=== PATIENT | male | born 1960 | race Hispanic/Latino ===

== ENCOUNTER 2025-06-30 12:11 | Emergency (ER) | payer MEDICARE ==
[~2025-06-30] VITALS: Ht 172.7 cm; Wt 72.6 kg
--- NOTE | 2025-06-30 12:25 | ERN ---
ED Note History of Present Illness Stated Complaint: LOWER EXTREMITY EDEMA Chief Complaint: LOWER EXTREMITY EDEMA Time Seen by MD: 12:22 Dictation: PATIENT IS A 64-YEAR-OLD MALE COMING IN FROM [place] VIA EMS WITH COMPLAINTS OF UNABLE TO URINATE SINCE YESTERDAY AFTERNOON AND FEELING VERY DISTENDED. IN ADDITION HE HAS GOT EDEMA TO HIS BILATERAL LOWER EXTREMITIES HE HAS HAD FOR A WEEK. HE STATES HE WENT TO [facility] IN [place] LAST WEEK AND WAS SEEN FOR THE SAME COMPLAINT THEY GAVE HIM LASIX FOR A DAY AND THEN SENT HIM HOME. HE SAW HIS PRIMARY CARE DOCTOR TODAY ADVISED HIM TO COME TO THE EMERGENCY ROOM AND CALLED EMS. Allergies: Coded Allergies: No Known Drug Allergies (Unverified Allergy, Unknown, 06/30/25) Past Medical History Past Medical History: No Pertinent History Surgical History: None RN Note Reviewed/Agreed w/PFSH: Yes Review of System Dictation CONSTITUTIONAL: NEGATIVE EXCEPT FOR HPI HEAD/FACE: NEGATIVE EXCEPT FOR HPI EENT: NEGATIVE EXCEPT FOR HPI RESPIRATORY: NEGATIVE EXCEPT FOR HPI SHORTNESS A BREATH GASTROINTESTINAL/ABDOMINAL: NEGATIVE EXCEPT FOR HPI DISTENTION WITH A ASCITES GENITOURINARY: NEGATIVE EXCEPT FOR HPI UNABLE TO VOID SINCE LAST NIGHT DISTENDED MUSCULOSKELETAL: NEGATIVE EXCEPT FOR HPI INTEGUMENTARY: NEGATIVE EXCEPT FOR HPI NEUROLOGICAL/PSYCH: NEGATIVE EXCEPT FOR HPI HEMATOLOGIC/LYMPHATIC: NEGATIVE EXCEPT FOR HPI ALL SYSTEMS NEGATIVE, EXCEPT NOTED ABOVE. 13 POINT REVIEW OF SYSTEMS ASSESSED AND ALL NEGATIVE EXCEPT FOR ABOVE. Initial Vital Sign VS Vital Signs Date Time Temp Pulse Resp B/P (MAP) Pulse Ox O2 Delivery O2 Flow Rate FiO2 06/30/25 12:13 97.9 89 18 130/84 97 Room Air 0 06/30/25 12:42 21 Physical Exam Dictation VITAL SIGNS REVIEWED GENERAL APPEARANCE: ALERT, ORIENTED X 3, NO ACUTE DISTRESS, WELL DEVELOPED, NOURISHED. HEAD AND FACE: NON-TRAUMATIC. EYES: PERRL, PINK CONJUNCTIVAS, EYELID NO TRAUMA, ANTERIOR CHAMBER WITH ARCUS SENILIS. EARS: PINNAS INTACT AND NO SIGNS OF TRAUMA OR ERYTHEMA EAR CANALS CLEAR AND NO DISCHARGE TM NO ERYTHEMA NOSE: NO DISCHARGE, NO BLEEDING. OROPHARYNX: MOUTH NORMAL, TONGUE PINK, PHARYNX CLEAR,NO ERYTHEMA, TONSILS NO EXUDATES, NO ABSCESSES NOTED, MUCOUS MEMBRANE MOIST NECK: SUPPLE, NON-TENDER, NO THYROMEGALY, NO MASSES, NO JVD, NO BRUITS BREAST:DEFERRED CHEST:NO TENDERNESS, NO CREPITUS, NO PARADOXICAL MOVEMENT, NO RETRACTIONS LUNGS:CLEAR, WELL-VENTILATED, SYMMETRIC, NO RALES, NO WHEEZING, NO RHONCHI, NO STRIDOR, GOOD BREATH SOUNDS BILATERALLY HEART: REGULAR RATE, REGULAR RHYTHM, NO MURMUR, NO GALLOPS VASCULAR: TWO TO 3+ PERIPHERAL EDEMA BILATERAL LOWER EXTREMITIES TO ANKLE, ABDOMEN: SOFT, POSITIVE BOWEL SOUNDS, MODERATE DISTENTION, NO GUARDING, NONTENDER, NO REBOUND, NO MASSES NO HEPATOMEGALY, NO SPLENOMEGALY, NO MONTESINOS'S SIGN, NO HERNIAS. NEGATIVE WAVE SIGN RECTAL: DEFERRED GENITAL: BLADDER DISTENDED 2-3 FINGERBREADTHS ABOVE SYMPHYSIS PUBIS NEUROLOGICAL: NORMAL SPEECH, MOTOR FUNCTION INTACT, SENSORY FUNCTION INTACT MUSCULOSKELETAL: NECK NONTENDER, FULL RANGE OF MOTION, BACK NONTENDER, FULL RANGE OF MOTION, EXTREMITIES: NONTENDER, FULL RANGE OF MOTION SKIN: COLOR PINK, DRY, NO TURGOR, NO RASH, NO LACERATIONS, NO ABRASIONS, NO CONTUSIONS. LYMPHATIC: DEFERRED Results (Laboratory/Radiology) Laboratory/Radiology Laboratory Tests Test 06/30/25 12:31 06/30/25 14:54 White Blood Count 6.6 K/uL (4.8-10.8) Red Blood Count 4.64 MIL/uL (4.50-6.20) Hemoglobin 13.2 g/dL (14.0-18.0) L Hematocrit 40.9 % (42-54) L Mean Corpuscular Volume 88.1 fL (79-99) Mean Corpuscular Hemoglobin 28.4 pg (27.0-33.0) Mean Corpuscular Hemoglobin Concent 32.3 g/dL (32.0-36.0) Red Cell Distribution Width 14.4 % (11.0-15.5) Platelet Count 320 K/uL (130-400) Mean Platelet Volume 8.6 fL (7.5-10.5) Immature Granulocyte % (Auto) 0.6 % (0-1) Neutrophils (%) (Auto) 61.5 % (40.0-77.0) Lymphocytes (%) (Auto) 20.0 % (21.0-51.0) L Monocytes (%) (Auto) 12.3 % (3.0-13.0) Eosinophils (%) (Auto) 5.0 % (0.0-8.0) Basophils (%) (Auto) 0.6 % (0.0-5.0) Neutrophils # (Auto) 4.1 K/uL (1.8-7.7) Lymphocytes # (Auto) 1.3 K/uL (1.0-4.8) Monocytes # (Auto) 0.8 K/uL (0.1-1.0) Eosinophils # (Auto) 0.33 K/uL (0.00-0.70) Basophils # (Auto) 0.04 K/uL (0.00-0.20) Absolute Immature Granulocyte (auto 0.04 K/uL (0-1) Nucleated Red Blood Cells 0.0 % (0.0-0.19) Sodium Level 132 mmol/L (136-145) L Potassium Level 3.9 mmol/L (3.5-5.1) Chloride Level 97 mmol/L (101-111) L Carbon Dioxide Level 27 mmol/L (21-32) Blood Urea Nitrogen 23 mg/dL (7-18) H Creatinine 1.0 mg/dL (0.5-1.3) Glomerular Filtration Rate Calc 84 mL/min (>90) Random Glucose 90 mg/dL (70-105) Total Calcium 8.9 mg/dL (8.5-10.1) Troponin I High Sensitivity 6 ng/L (4-75) B-Type Natriuretic Peptide 99 pg/mL (0-100) Urine Color YELLOW (YELLOW) Urine Appearance CLEAR (CLEAR) Urine pH 6.0 (5.0-8.0) Urine Specific [place] 1.020 (1.001-1.031) Urine Protein TRACE mg/dL (NEGATIVE) H Urine Glucose (UA) NEGATIVE mg/dL (NEGATIVE) Urine Ketones NEGATIVE mg/dL (NEGATIVE) Urine Occult Blood MODERATE (NEGATIVE) H Urine Nitrate NEGATIVE (NEGATIVE) Urine Bilirubin NEGATIVE mg/dL (NEGATIVE) Urine Urobilinogen 0.2 mg/dL (0.2-1.0) Urine Leukocyte Esterase NEGATIVE Hua/uL Urine RBC 6-10 /HPF (0-1) H Urine WBC 0-1 /HPF (0-1) Urine Squamous Epithelial Cells None Seen /HPF (0-2) Urine Bacteria Rare /HPF (None Seen) STUDY: X-RAY OF THE CHEST, 1 VIEW HISTORY: Shortness of breath. TECHNIQUE: A single frontal view of the chest is submitted for interpretation. COMPARISON: None provided. FINDINGS: Pulmonary plata: Moderate diffuse airspace opacities are present in both lungs. Background prominence of bronchovascular markings is compatible with underlying chronic bronchitic change. No focal cavitary lesion is identified. Cardiac silhouette: Mild cardiomegaly. Mediastinum and maycol: Pulmonary vascular markings are mildly prominent, in keeping with mild vascular congestion. Mediastinal contours and maycol are otherwise within normal limits. Osseous structures: Visualized ribs, clavicles, and thoracic spine show no acute osseous abnormality. Miscellaneous: No large pleural effusion or pneumothorax is identified. Diaphragms and costophrenic angles are grossly preserved on this single view. No subdiaphragmatic free air is seen. IMPRESSION: * Moderate diffuse bilateral airspace opacities with mild pulmonary vascular congestion and mild cardiomegaly, most suggestive of pulmonary edema in the appropriate clinical setting. Atypical or multifocal infection could have a similar appearance. Correlate with clinical findings, oxygenation status, and laboratory markers (including BNP and inflammatory markers); further evaluation with echocardiography and/or follow-up chest imaging may be warranted based on the clinical course. * Background changes compatible with chronic bronchitis/chronic airway disease. Correlate with smoking history or other chronic airway irritants; optimization of bronchodilator and pulmonary care may be considered as clinically indicated. * No large pleural effusion or pneumothorax identified on this single-view study. If symptoms are severe or progressive, additional imaging (including lateral chest radiograph or CT) can be considered for more detailed assessment. /[facility] Reviewed?: Yes EKG: (+) NSR EKG Comment: 67/ EKG NORMAL SINUS RHYTHM/HEART RATE 67/AXIS NORMAL/NO ED Course ED Course Orders Procedure Category Date Status Time B-Type Natriuretic LAB 06/30/25 Complete Peptide 12:22 Bladder Scan CPOE 06/30/25 Transmitted 12:22 Cbc With Differential LAB 06/30/25 Complete 12:22 Troponin I High LAB 06/30/25 Complete Sensitivity 12:22 Urinalysis Profile LAB 06/30/25 Complete 12:22 12 Lead Ekg Tracing- EKG 06/30/25 Complete Technical 12:22 Chest 1vw RAD 06/30/25 Resulted 12:22 Basic Metabolic Panel LAB 06/30/25 Complete 12:22 *Nursing CPOE 06/30/25 Transmitted Communication: 12:22 Hydrocodone/Apap PHA 06/30/25 Complete 5/325 ([place] 5/325mg) 14:30 Current Medications Medications (Trade) Dose Ordered Sig/[place] Route PRN Reason Start Time Stop Time Status Last Admin Dose Admin Acetaminophen/ Hydrocodone Bitart (NORco 5/325MG) 1 tab ONCE ONCE PO 06/30/25 14:30 06/30/25 14:31 DC 06/30/25 14:16 Vital Signs Date Time Temp Pulse Resp B/P (MAP) Pulse Ox O2 Delivery O2 Flow Rate FiO2 06/30/25 12:42 98.2 78 16 119/80 97 Room Air* 0 21 06/30/25 12:13 97.9 89 18 130/84 97 Room Air 0 1520/PATIENT'S LABS ARE ESSENTIALLY UNREMARKABLE SODIUM 132 MILD DEHYDRATION. THERE WAS NO BNP ELEVATION HE DOES HAVE ACUTE URINARY RETENTION CEVALLOS CATHETER HAS BEEN PLACED AND BLADDER WAS DECOMPRESSED. THERE WAS NO UTI HE WILL BE DISCHARGED HOME WITH BPH AND OBSTRUCTION REFERRED TO UROLOGY PUT ON FLOMAX AND CIPRO HEART Score Response (Comments) Value History: Low suspicion (0) 0 Age: 45-65yrs (+1) 1 Risk Factors: 1-2 risk factors (+1) 1 Initial Troponin: Normal limit (0) 0 Total 2 Medical Decision Making MDM MDM: DIFFERENTIAL DIAGNOSIS: CHF EXACERBATION/EDEMA/ELECTROLYTE IMBALANCE/DEHYDRATION/BPH WITH URINARY RETENTION/ARRHYTHMIA/ACS/AMI/ RATIONALE: TESTS CONSIDERED AND ORDERED SECONDARY TO SHARED DECISION MAKING INCLUDE: LABS/EKG/RADIOLOGY PREVIOUS OUTSIDE RECORDS REVIEWED: OLD ER VISITS. RISK OF COMPLICATION AND/OR MORBIDITY OR MORTALITY OF PATIENT MANAGEMENT: NONE MEDICATIONS-PER MEDICATION RECONCILIATION NEED FOR HOSPITALIZATION: PATIENT DOES NOT MEET CRITERIA FOR HOSPITALIZATION. NONE NEED FOR EMERGENCY MAJOR/MINOR SURGERY: NO THERE ARE NO SOCIAL CONCERNS WITH THIS PATIENT. PRESCRIPTION DRUG MANAGEMENT CIPRO/FLAGYL/LASIX REFERRED TO UROLOGY PRESCRIPTIONS WILL INCLUDE SYMPTOMATIC CARE PATIENT'S PRIOR EXTERNAL MEDICAL RECORDS FROM OTHER ER VISITS WERE REVIEWED BY ME INDICATED. PRIOR TESTING AND RESULTS FROM PREVIOUS VISITS WERE REVIEWED. PRIOR TESTS WERE TAKEN INTO ACCOUNT WITH MEDICAL DECISION MAKING AND RESOURCE UTILIZATION, INDEPENDENT HISTORIAN/HISTORIANS WERE USED TO OBTAIN COMPLETE MEDICAL HISTORY. I INDEPENDENTLY INTERPRETED THE TEST THAT WERE PERFORMED, RESULTS WERE REVIEWED BY ME AND CONSIDERED FINDINGS ON RADIOLOGY IF ORDERED. MEDICAL MANAGEMENT AND EXAMINATION INTERPRETATION DISCUSSIONS WERE HAD BY ME WITH OTHER QUALIFIED HEALTHCARE PROFESSIONALS INDICATED FOR THE PATIENT'S CARE. DX & DISP Disposition: Discharge Departure Impression: Primary Impression: Acute urinary retention Additional Impressions: BPH with urinary obstruction, Hyponatremia, Mild dehydration, Dependent edema Condition: Stable Scripts Furosemide (Lasix) 20 Mg Tablet 1 TAB PO DAILY for 5 Days, #5 TAB 0 Refills Prov: DORCAS CHAPARROP 06/30/25 Ciprofloxacin HCl (Cipro) 500 Mg Tablet 1 TAB PO BID for 10 Days, #20 TAB 0 Refills Prov: DORCAS CHAPARROP 06/30/25 Additional Instructions: FOLLOW-UP WITH PRIMARY CARE PROVIDER IN 1 TO 2 DAYS. TAKE MEDICATIONS DIRECTED HERE IN THE EMERGENCY ROOM. OKAY TO CONTINUE HOME MEDICATIONS UNLESS OTHERWISE DISCUSSED DURING YOUR VISIT IN THE EMERGENCY ROOM TODAY. RETURN TO YOUR NEAREST EMERGENCY ROOM IF SYMPTOMS WORSEN OR IF THERE IS NO IMPROVEMENT. CALL 911 IF YOU NEED IMMEDIATE ASSISTANCE. TAKE TYLENOL OR MOTRIN [id number] NEEDED AND IF NO CONTRAINDICATIONS ARE PRESENT. INCREASE ORAL HYDRATION. A WOUND CULTURE OR URINE CULTURE WAS ORDERED HERE IN THE EMERGENCY ROOM DEPARTMENT PLEASE FOLLOW-UP WITH PRIMARY CARE PROVIDER AND ADVISE THEM TO GET REPEAT PORTS FROM OUR FACILITY. IF YOU HAD ANY KENDRICK WRAP/SPLINTS THAT WERE APPLIED HERE, PLEASE DO NOT REMOVE THEM UNTIL YOU SEE YOUR PRIMARY CARE OR SPECIALTY. TAKE CIPRO DIRECTED UNTIL GONE. KEEP YOUR LEGS ELEVATED MUCH POSSIBLE. TAKE LASIX DAILY FOR THE NEXT FIVE DAYS FOR YOUR EDEMA. CALL UROLOGIST FOR AN APPOINTMENT IN THE NEXT 1-2 DAYS AND INCREASE YOUR WATER INTAKE. Referrals: NONE (PCP) SAMUEL CHESTER MD Time of Disposition: 15:25 I have reviewed the case, and I agree with, Diagnosis and Plan DORCAS CHAPARRO Jun 30, 2025 12:24
[2025-06-30 12:38] LABS: IMMATURE GRANULOCYTE ABSOLUTE 0.04 K/uL (0-1); NUCLEATED RED BLOOD CELLS 0.0 % (0.0-0.19); PLATELET COUNT (AUTO) 320 K/uL (130-400); RED BLOOD CELL COUNT(AUTO) 4.64 MIL/uL (4.50-6.20); RED CELL DISTRIBUTION WIDTH 14.4 % (11.0-15.5); WHITE BLOOD COUNT (AUTO) 6.6 K/uL (4.8-10.8)
[2025-06-30 12:42] VITALS: BP 119/80; PULSE 78; RESP 16; TEMP 98.3; O2SAT 97
[2025-06-30 12:46] LABS: CREATININE 1.0 mg/dL (0.5-1.3); GLOMERULAR FILTR. RATE CALC 84.0 mL/min (>90); GLUCOSE,RANDOM 90.0 mg/dL (70-105); SODIUM SERUM 132.0 mmol/L (136-145); UREA NITROGEN, BLOOD 23.0 mg/dL (7-18)
--- NOTE | 2025-06-30 12:56 | NUR ---
PATIENT [id number] CC OF URINE AFTER BLADDER SCAN DORCAS CHAPARRO [employer]ATTLE ALLEY WORKER AWARE PATIENT RESTING IN BED, CALL LIGHT IN REACH
--- NOTE | 2025-06-30 13:15 | HMCIMG ---
STUDY: X-RAY OF THE CHEST, 1 VIEW HISTORY: Shortness of breath. TECHNIQUE: A single frontal view of the chest is submitted for interpretation. COMPARISON: None provided. FINDINGS: Pulmonary plata: Moderate diffuse airspace opacities are present in both lungs. Background prominence of bronchovascular markings is compatible with underlying chronic bronchitic change. No focal cavitary lesion is identified. Cardiac silhouette: Mild cardiomegaly. Mediastinum and maycol: Pulmonary vascular markings are mildly prominent, in keeping with mild vascular congestion. Mediastinal contours and maycol are otherwise within normal limits. Osseous structures: Visualized ribs, clavicles, and thoracic spine show no acute osseous abnormality. Miscellaneous: No large pleural effusion or pneumothorax is identified. Diaphragms and costophrenic angles are grossly preserved on this single view. No subdiaphragmatic free air is seen. IMPRESSION: * Moderate diffuse bilateral airspace opacities with mild pulmonary vascular congestion and mild cardiomegaly, most suggestive of pulmonary edema in the appropriate clinical setting. Atypical or multifocal infection could have a similar appearance. Correlate with clinical findings, oxygenation status, and laboratory markers (including BNP and inflammatory markers); further evaluation with echocardiography and/or follow-up chest imaging may be warranted based on the clinical course. * Background changes compatible with chronic bronchitis/chronic airway disease. Correlate with smoking history or other chronic airway irritants; optimization of bronchodilator and pulmonary care may be considered as clinically indicated. * No large pleural effusion or pneumothorax identified on this single-view study. If symptoms are severe or progressive, additional imaging (including lateral chest radiograph or CT) can be considered for more detailed assessment. /[facility]
--- NOTE | 2025-06-30 13:25 | NUR ---
16 K[place] CEVALLOS CATHETER PLACED, PATIENT TOLERATED WELL I GOT OUT 1000CC OF YELLOW URINE, PATIENT RESTING IN BED, CALL LIGHT IN REACH
[2025-06-30] MEDS: HYDROcodone/APAP 5/325 1 TAB TABLET PO ONE (14:16)
[2025-06-30 15:01] LABS: APPEARANCE,URINE CLEAR (CLEAR); GLUCOSE, URINE (UA) NEGATIVE (NEGATIVE); LEUKOCYTE ESTERASE ,URINE NEGATIVE Leu/uL (NEGATIVE); NITRATE,URINE NEGATIVE (NEGATIVE); OCCULT BLOOD,URINE MODERATE (NEGATIVE)
[2025-06-30 15:14] LABS: ADD UA MICROSCOPIC YES
[2025-06-30 15:16] LABS: SQUAMOUS EPITHELIAL CELL,UR None Seen /HPF (0-2)
--- NOTE | 2025-06-30 15:25 | EKG ---
[facility] Test Date: 2025-06-30 Test Time: 12:56:31 Pat Name: TAWNYA MATA Department: ED Room: Gender: Harness Rigger: [id number] Requested By: DORCAS CHAPARRO Order Number: [id number] Reading MD: Alfredo Rahman Measurements Intervals [place] Rate: 87 P: 49 WA: 210 QRS: 60 QRSD: 83 T: 26 QT: 341 QTc: 411 Interpretive Statements Sinus rhythm No previous ECG available for comparison Electronically Signed On 06-30-2025 21:19:57 [employer]ILRO[employer] DINING [employer] STEWARD[employer] by Alfredo Rahman Please click the below link to view image of tracing.
[2025-06-30] MEDS ORDERED: CIPR-278 PO (15:34)
[2025-06-30] MEDS ORDERED: FURO-152 PO (15:34)
--- NOTE | 2025-06-30 16:36 | NUR ---
dc patient was dc'd by nleli hay security nurse i dc'd patients iv with cath still intact and applied 2x2 gauz with coban, i explained to patient to follow up with pcp, provided info based on diagnosis, prescriptions, and answered any follow up questions, i instructed and provided patient info on indweeling catheter and how to take care of it, i spoke to warehouse material handler brandon tsang to set up uber transport for patient , patient was taken by wheelchair to front of ed, waitinf for uber, no complications
[2025-07-01] MEDS ORDERED: ACET-66 PO (11:28)
== END 2025-06-30 16:23 | disposition home or self-care (01) ==
LOC: EDBD 12:11 → EDH 12:11
DX: N40.1 Benign prostatic hyperplasia with lower urinary tract symptoms (principal); R33.8 Other retention of urine; N13.8 Other obstructive and reflux uropathy; E86.0 Dehydration; E87.1 Hypo-osmolality and hyponatremia; R60.9 Edema, unspecified; Z87.891 Personal history of nicotine dependence
CPT/HCPCS: 36415; 51702; 71045; 80048; 81001; 83880; 84484; 85025; 93005; 99285

== ENCOUNTER 2025-07-01 09:18 | Emergency (ER) | payer MEDICAID, MEDICARE ==
[~2025-07-01] VITALS: Ht 172.7 cm; Wt 72.6 kg
[~2025-07-01 09:18] MED LIST: CIPR-278 PO; FURO-152 PO
--- NOTE | 2025-07-01 09:59 | ERN ---
General Chief Complaint: Hip Pain/Injury Stated Complaint: HIP PAIN Time Seen by MD: 09:23 Source: EMS History of Present Illness Initial Comments My patient, 64-year-old male, was brought by EMS to the emergency with complaint of bilateral hip pain. Patient states that he had 2 falls since yesterday while walking. He did not lose any consciousness. He denies dizziness or li ghtheadedness before the fall. After the fall, he has pain in bilateral hips. He was seen in the emergency yesterday with difficulty urinating and a [place] catheter was placed. Timing/Duration: 24 hours Severity: mild Allergies: Coded Allergies: No Known Drug Allergies (Unverified Allergy, Unknown, 06/30/25) Home Meds Active Scripts Acetaminophen (Tylenol) 500 Mg Tab, 500 MG PO TID for 7 Days, #30 TAB Prov:DIONICIO CASTANON MD 07/01/25 Furosemide (Lasix) 20 Mg Tablet, 1 TAB PO DAILY for 5 Days, #5 TAB 0 Refills Prov:DORCAS CHAPARRO 06/30/25 Ciprofloxacin HCl (Cipro) 500 Mg Tablet, 1 TAB PO BID for 10 Days, #20 TAB 0 Refills Prov:DORCAS CHAPARRO 06/30/25 Past Medical History Past Medical History: No Pertinent History Past Surgical History: None Constitutional: (+) weakness Respiratory: (-) cough, (-) orthopnea, (-) short of breath, (-) stridor, (-) wheezing, (-) other documentation Cardiovascular: (+) edema, (+) dyspnea on exertion Gastrointestinal/Abdominal: (-) nausea, (-) vomiting, (-) diarrhea, (-) abdominal pain, (-) abdominal distention, (-) constipation, (-) rectal bleeding, (-) dark stool/melena, (-) other documentation Genitourinary: (+) other documentation ([place] catheter placed); (-) penile discharge, (-) dysuria, (-) frequency, (-) hematuria, (-) pain Musculoskeletal: (+) joint pain; (-) Neck pain, (-) back pain, (-) Flank Pain, (-) joint swelling, (-) muscle pain, (-) muscle stiffness, (-) gout, (-) other documentation Skin: (+) dryness; (-) laceration, (-) contusion, (-) abrasion, (-) abscess, (-) rash, (-) change in color, (-) change in hair, (-) change in nails, (-) diaphoresis, (-) other documentation Neuro: (-) altered mental status, (-) headache, (-) syncope, (-) paralysis, (-) numbness, (-) seizure, (-) pre-existing deficit, (-) tremors, (-) weakness, (-) dizziness, (-) slurred speech, (-) vertigo, (-) other documentation Physical Exam General Appearance: (+) mild distress Orientation: (+) alert, (+) oriented x 3 Head/Face Trauma: No Eye: bilateral eye normal inspection Ear, Nose, Throat: (+) hearing grossly normal, (+) moist mucous membraine, (+) normal pharynx Neck: (+) normal inspection, (+) supple, (+) full range of motion Respiratory: (+) chest non-tender Heart: (+) regular Vascular: (+) edema Gastrointestinal: (+) soft, (+) non-tender Back: (+) normal inspection, (+) no CVA tenderness Extremities: (+) normal range of motion, (+) non-tender, (+) pedal edema, (+) swelling Neurologic/Psychiatric: (+) normal speech Results Laboratory and Microbiology Lab and Micro Result Laboratory Tests Test 07/01/25 09:54 07/01/25 09:55 White Blood Count 7.3 K/uL (4.8-10.8) Red Blood Count 4.40 MIL/uL (4.50-6.20) L Hemoglobin 12.8 g/dL (14.0-18.0) L Hematocrit 39.2 % (42-54) L Mean Corpuscular Volume 89.1 fL (79-99) Mean Corpuscular Hemoglobin 29.1 pg (27.0-33.0) Mean Corpuscular Hemoglobin Concent 32.7 g/dL (32.0-36.0) Red Cell Distribution Width 14.3 % (11.0-15.5) Platelet Count 287 K/uL (130-400) Mean Platelet Volume 8.8 fL (7.5-10.5) Nucleated Red Blood Cells 0.0 % (0.0-0.19) Sodium Level 135 mmol/L (136-145) L Potassium Level 3.7 mmol/L (3.5-5.1) Chloride Level 99 mmol/L (101-111) L Carbon Dioxide Level 29 mmol/L (21-32) Blood Urea Nitrogen 16 mg/dL (7-18) Creatinine 1.1 mg/dL (0.5-1.3) Glomerular Filtration Rate Calc 75 mL/min (>90) Random Glucose 143 mg/dL (70-105) #H Total Calcium 8.9 mg/dL (8.5-10.1) Urine Color LIGHT-YELLOW (YELLOW) Urine Appearance CLOUDY (CLEAR) H Urine pH 6.0 (5.0-8.0) Urine Specific [place] 1.019 (1.001-1.031) Urine Protein 30 mg/dL (NEGATIVE) H Urine Glucose (UA) NEGATIVE mg/dL (NEGATIVE) Urine Ketones NEGATIVE mg/dL (NEGATIVE) Urine Occult Blood LARGE (NEGATIVE) H Urine Nitrate NEGATIVE (NEGATIVE) Urine Bilirubin NEGATIVE mg/dL (NEGATIVE) Urine Urobilinogen 0.2 mg/dL (0.2-1.0) Urine Leukocyte Esterase 75 Hua/uL (NEGATIVE) H Urine RBC 26-50 /HPF (0-1) H Urine WBC 6-10 /HPF (0-1) H Urine Squamous Epithelial Cells None Seen /HPF (0-2) Urine Bacteria Rare /HPF (None Seen) EKG/XRAY/US/CT/MRI X-RAY Comment PATIENT: TAWNYA MATA MR#: [id number] : 1960 SEX: M AGE: 64 LOCATION: [facility] ORDER 8 STATUS: [facility] REPORT#: [id number] SERVICE 4 REASON: Fall with hip pain. ORDERING PHYSICIAN: DIONICIO CASTANON MD PROCEDURE: HIP U 2V L - HIP UNILAT 2-3VW LEFT EXAM: CR left Hip, 2 Views. CLINICAL HISTORY: Fall with hip pain. COMPARISON: None provided. FINDINGS: BONES: No acute fracture or aggressive appearing osseous lesion. JOINTS: No dislocation. The joint spaces are normal. SOFT TISSUES: The soft tissues are unremarkable. IMPRESSION: No acute osseous abnormality. /[place] DICTATED BY: SHYAM MOHAN Jr., MD DATE: 07/01/251155 ELECTRONICALLY SIGNED BY: SHYAM MOHAN Jr., MD DATE: 07/01/251155 PATIENT: TAWNYA MATA MR#: [id number] : 1960 SEX: M AGE: 64 LOCATION: [facility] ORDER 8 STATUS: REG REPORT#: [id number] SERVICE 4 REASON: Fall with hip pain. ORDERING PHYSICIAN: DIONICIO CASTANON MD PROCEDURE: HIP U 2V R - HIP UNILAT 2-3VW RIGHT EXAM: CR right Hip, 3 Views. CLINICAL HISTORY: Fall with hip pain. COMPARISON: None provided. FINDINGS: BONES: No acute fracture or aggressive appearing osseous lesion. JOINTS: No dislocation. The joint spaces are normal. Focal sclerosis and irregular margin around the pubic symphysis are probably enthesitis changes SOFT TISSUES: The soft tissues are unremarkable. IMPRESSION: No acute osseous abnormality. /[place] DICTATED BY: SHYAM MOHAN Jr., MD DATE: 07/01/251201 ELECTRONICALLY SIGNED BY: SHYAM MOHAN Jr., MD DATE: 07/01/251201 MDM MDM: Differential diagnosis: Bilateral hip pain-musculoskeletal etiology, osteoart hritis This patient, 64-year-old male, presented with bilateral hip pain after having a fall. * CBC, BMP and UA profile were taken. * Bilateral hip x-rays were performed to rule out any fracture which came back unremarkable. * Patient was given [place] for pain. * Patient was also seen in the emergency yesterday and was prescribed antibiotic as well as Lasix. * He is being discharged with Tylenol q.8h. ED Course Orders Procedure Category Date Status Time Cbc Without LAB 07/01/25 Complete Differential 09:46 Basic Metabolic Panel LAB 11/26/25 Complete 09:46 Urinalysis Profile LAB 07/01/25 Complete 09:54 Hip Unilat 2-3vw Right RAD 07/01/25 Resulted 09:55 Hip Unilat 2-3vw Left RAD 07/01/25 Resulted 09:55 Culture Urine ROBYN 07/01/25 In Process 10:24 Hydrocodone/Apap PHA 07/01/25 Complete 5/325 ([place] 5/325mg) 11:30 Current Medications Medications (Trade) Dose Ordered Sig/[place] Route PRN Reason Start Time Stop Time Status Last Admin Dose Admin Acetaminophen/ Hydrocodone Bitart (NORco 5/325MG) 1 tab ONCE ONCE PO 07/01/25 11:30 07/01/25 11:31 DC 07/01/25 11:38 Vital Signs Date Time Temp Pulse Resp B/P (MAP) Pulse Ox O2 Delivery O2 Flow Rate FiO2 07/01/25 11:40 97.5 77 19 115/71 98 Room Air* 0 21 07/01/25 10:56 97.5 76 20 125/76 99 Room Air* 0 21 07/01/25 09:58 97.5 80 20 124/82 99 Room Air* 0 21 07/01/25 09:23 97.9 84 16 128/81 98 Room Air 0 DX & DISP Disposition: Discharge Departure Impression: Primary Impression: Hip pain, bilateral Additional Impression: Osteoarthritis of hip Condition: Stable Scripts Acetaminophen (Tylenol) 500 Mg Tab 500 MG PO TID for 7 Days, #30 TAB Prov: DIONICIO CASTANON MD 07/01/25 Additional Instructions: FOLLOW-UP WITH PRIMARY CARE PROVIDER IN 1 TO 2 DAYS. TAKE MEDICATIONS DIRECTED HERE IN THE EMERGENCY ROOM. OKAY TO CONTINUE HOME MEDICATIONS UNLESS OTHERWISE DISCUSSED DURING YOUR VISIT IN THE EMERGENCY ROOM TODAY. RETURN TO YOUR NEAREST EMERGENCY ROOM IF SYMPTOMS WORSEN OR IF THERE IS NO IMPROVEMENT. CALL 911 IF YOU NEED IMMEDIATE ASSISTANCE. TAKE TYLENOL [id number] NEEDED AND IF NO CONTRAINDICATIONS ARE PRESENT. INCREASE ORAL HYDRATION. A WOUND CULTURE OR URINE CULTURE WAS ORDERED HERE IN THE EMERGENCY ROOM DEPARTMENT PLEASE FOLLOW-UP WITH PRIMARY CARE PROVIDER AND ADVISE THEM TO GET REPORTS FROM OUR FACILITY. IF YOU HAD ANY KENDRICK WRAP/SPLINTS THAT WERE APPLIED HERE, PLEASE DO NOT REMOVE THEM UNTIL YOU SEE YOUR PRIMARY CARE OR SPECIALTY. Referrals: Referrals: KERRI ROBB (PCP) Time of Disposition: 11:50 I have reviewed the case, and I agree with, Diagnosis and Plan I have examined patient, & reviewed all documents, & agreed W/ the Diagnosis, and Plan DIONICIO CASTANON MD Jul 01, 2025 09:59 ANIL ALICIA MD Jul 01, 2025 12:19
[2025-07-01 10:07] LABS: NUCLEATED RED BLOOD CELLS 0.0 % (0.0-0.19); PLATELET COUNT (AUTO) 287.0 K/uL (130-400); RED BLOOD CELL COUNT(AUTO) 4.4 MIL/uL (4.50-6.20); RED CELL DISTRIBUTION WIDTH 14.3 % (11.0-15.5); WHITE BLOOD COUNT (AUTO) 7.3 K/uL (4.8-10.8)
[2025-07-01 10:15] LABS: CREATININE 1.1 mg/dL (0.5-1.3); GLOMERULAR FILTR. RATE CALC 75.0 mL/min (>90); GLUCOSE,RANDOM 143.0 mg/dL (70-105); SODIUM SERUM 135.0 mmol/L (136-145); UREA NITROGEN, BLOOD 16.0 mg/dL (7-18)
[2025-07-01 10:21] LABS: GLUCOSE, URINE (UA) NEGATIVE (NEGATIVE); LEUKOCYTE ESTERASE ,URINE 75 Leu/uL (NEGATIVE); NITRATE,URINE NEGATIVE (NEGATIVE); OCCULT BLOOD,URINE LARGE (NEGATIVE)
[2025-07-01 10:22] LABS: ADD UA MICROSCOPIC YES; APPEARANCE,URINE CLOUDY (CLEAR)
[2025-07-01 10:55] LABS: SQUAMOUS EPITHELIAL CELL,UR None Seen /HPF (0-2)
--- NOTE | 2025-07-01 10:57 | HMCIMG ---
EXAM: CR left Hip, 2 Views. CLINICAL HISTORY: Fall with hip pain. COMPARISON: None provided. FINDINGS: BONES: No acute fracture or aggressive appearing osseous lesion. JOINTS: No dislocation. The joint spaces are normal. SOFT TISSUES: The soft tissues are unremarkable. IMPRESSION: No acute osseous abnormality. /[place]
--- NOTE | 2025-07-01 11:03 | HMCIMG ---
EXAM: CR right Hip, 3 Views. CLINICAL HISTORY: Fall with hip pain. COMPARISON: None provided. FINDINGS: BONES: No acute fracture or aggressive appearing osseous lesion. JOINTS: No dislocation. The joint spaces are normal. Focal sclerosis and irregular margin around the pubic symphysis are probably enthesitis changes SOFT TISSUES: The soft tissues are unremarkable. IMPRESSION: No acute osseous abnormality. /[place]
[2025-07-01] MEDS ORDERED: ACET-66 PO (11:28)
[2025-07-01] MEDS: HYDROcodone/APAP 5/325 1 TAB TABLET PO ONE (11:38)
[2025-07-01 11:40] VITALS: BP 115/71; PULSE 77; RESP 19; TEMP 97.5; O2SAT 98
--- NOTE | 2025-07-01 12:15 | NUR ---
PT STABLE VITALS WNL PT GIVEN PAIN MEDIATION PRIOR TO DISCHARGE. PT AAOX4 IV REMOVED CATHETER INTACT, PT STATED HE DID NOT HAVE RIDE HOME, PT WAS CALLED AN UBER. PT TAKEN OUT TO ED LOBBY VIA W/C WITH PERONAL BELONGINGS. PT HELPED INTO CAR.
== END 2025-07-01 12:20 | disposition home or self-care (01) ==
LOC: EDH 09:18
DX: M16.0 Bilateral primary osteoarthritis of hip (principal); Z79.899 Other long term (current) drug therapy; Z46.6 Encounter for fitting and adjustment of urinary device
CPT/HCPCS: 36415; 73502; 80048; 81001; 85027; 87086; 87186; 99284